=== PATIENT | male | born 1960 | race Caucasian/White ===

== ENCOUNTER 2020-08-09 07:29 | Emergency (ER) | payer BC, OTHER ==
[~2020-08-09] VITALS: Ht 177.8 cm; Wt 102.1 kg
[2020-08-09 07:50] VITALS: BP 128/83
[2020-08-09] MEDS ORDERED: SODIUM CHLORIDE 0.9% 500 ML IV ONE (10:45)
[2020-08-09] MEDS ORDERED: PATIENTS OWN MEDICATION IV ONE (16:00)
== END 2020-08-09 16:14 | disposition home or self-care (01) ==
LOC: ER 07:29
DX: U07.1 COVID-19 (principal)
CPT/HCPCS: 71045; 96360; 99283; J7030